=== PATIENT | female | born 1975 | race Caucasian/White ===

== ENCOUNTER 2016-07-23 19:36 | Inpatient (IN) | payer OTHER ==
[~2016-07-23 19:36] MED LIST: AMBIEN CR6.25 MG PO; CALCITRIOL0.25 MC1 PO; CALCIUM 500 +1 EAC9 PO; FLEXERIL10 MG; IBUPROFEN800 M1 PO; LEVOTHYROXINE25 MC3; NORCO 5-325 TA1 EACH PO; NORCO 5/325 TAB1 TAB PO; PRENATAL TABLE1 EAC3 PO; PRENATAL VITAM1 EAC5; SYNTHROID25 MC1 PO; TYLENOL EXTRA500 M1 PO; TYLENOL WITH C1 EACH PO; WELLBUTRIN SR150 MG
[2016-07-23 20:56] LABS: BASO % 0.1 % (0-2); EOS % 0.5 % (0-7); EOSINOPHIL ABSOLUTE COUNT 0.1 tho/cmm (0.0-0.7); HCT-HEMATOCRIT 34.8 % (34.0-49.0); HGB-HEMOGLOBIN 11.6 gm/dl (12.0-15.5); IMMATURE GRANULOCYTES ABSOLUTE 0.07 tho/cmm (0-0.03); IMMATURE GRANULOCYTES PERCENT 0.7 % (0-0.3); LYMPH % 15.4 % (20-45); LYMPH ABSOLUTE COUNT 1.5 tho/cmm (0.8-4.5); MCHC MEAN CORPUSCULAR HGB CONC 33.3 % (32.0-36.0); MCV (MEAN CELL VOLUME) 83.9 fl (82.0-96.0); MEAN PLATELET VOLUME 12.2 cmc (9.4-12.4); MONO % 5.9 % (0-12); MONOCYTE ABSOLUTE COUNT 0.6 tho/cmm (0.0-1.2); NEUTROPHIL ABSOLUTE COUNT 7.7 tho/cmm (1.6-8.0); NEUTROPHIL-AUTOMATED 7.7 tho/cmm (1.6-8.0); NEUTROPHILS % 77.4 % (40-80); PLATELET COUNT 165 tho/cmm (150-450); RED BLOOD COUNT 4.15 mil/cmm (4.00-5.20); RED CELL DISTRIBUTION WIDTH 14.8 % (12.4-16.4)
[2016-07-23] MEDS ORDERED: PRENA1 CHEW TA1.4 M1 PO (21:38)
[2016-07-23] MEDS ORDERED: SYNTHROID175 MC1 PO (21:40)
[2016-07-23] MEDS ORDERED: PROTONIX40 M2 PO (21:43)
[2016-07-23] MEDS ORDERED: 12 HOUR NASAL R15 ML (21:43)
[2016-07-24 12:05] LABS: CORD BLOOD PH ARTERIAL 7.13 Units (7.18-7.38)
[2016-07-24 12:08] LABS: CORD BLOOD PH ARTERIAL 7.25 Units (7.18-7.38)
[2016-07-25 06:44] LABS: BASO % 0.1 % (0-2); EOS % 0.6 % (0-7); EOSINOPHIL ABSOLUTE COUNT 0.1 tho/cmm (0.0-0.7); HCT-HEMATOCRIT 31.5 % (34.0-49.0); HGB-HEMOGLOBIN 10.2 gm/dl (12.0-15.5); IMMATURE GRANULOCYTES ABSOLUTE 0.04 tho/cmm (0-0.03); IMMATURE GRANULOCYTES PERCENT 0.5 % (0-0.3); LYMPH % 20.9 % (20-45); LYMPH ABSOLUTE COUNT 1.8 tho/cmm (0.8-4.5); MCH (MEAN CORPUSCULAR HGB) 27.5 pg (28.0-32.0); MCHC MEAN CORPUSCULAR HGB CONC 32.4 % (32.0-36.0); MCV (MEAN CELL VOLUME) 84.9 fl (82.0-96.0); MEAN PLATELET VOLUME 11.9 cmc (9.4-12.4); MONO % 6.2 % (0-12); MONOCYTE ABSOLUTE COUNT 0.5 tho/cmm (0.0-1.2); NEUTROPHIL ABSOLUTE COUNT 6.1 tho/cmm (1.6-8.0); NEUTROPHIL-AUTOMATED 6.1 tho/cmm (1.6-8.0); NEUTROPHILS % 71.7 % (40-80); PLATELET COUNT 136 tho/cmm (150-450); RED BLOOD COUNT 3.71 mil/cmm (4.00-5.20); RED CELL DISTRIBUTION WIDTH 15.2 % (12.4-16.4); WHITE BLOOD COUNT 8.5 tho/cmm (4.0-10.0)
[2016-07-26] MEDS ORDERED: PERCOCET 5-3251 EACH PO (12:46)
[2016-07-26] MEDS ORDERED: IBUPROFEN800 M1 PO (12:47)
== END 2016-07-26 17:57 | DRG 775 ==
LOC: LDR 19:36 → OBGF 07-24 14:15
PROVIDERS: Anesthesiology; ADMIT Obstetrics & Gynecology
PROC: 10E0XZZ Delivery of Products of Conception, External Approach (ICD-10-PCS; principal; 2016-07-24)
PROC: 10907ZC Drainage of Amniotic Fluid, Therapeutic from Products of Conception, Via Natural or Artificial Opening (ICD-10-PCS; 2016-07-24)
PROC: 0HQ9XZZ Repair Perineum Skin, External Approach (ICD-10-PCS; 2016-07-24)
DX: O32.8XX2 Maternal care for other malpresentation of fetus, fetus 2 (principal); Z37.2 Twins, both liveborn; O70.0 First degree perineal laceration during delivery; O30.043 Twin pregnancy, dichorionic/diamniotic, third trimester; Z3A.38 38 weeks gestation of pregnancy; Z87.891 Personal history of nicotine dependence; O99.824 Streptococcus B carrier state complicating childbirth; O99.284 Endocrine, nutritional and metabolic diseases complicating childbirth; E03.9 Hypothyroidism, unspecified
CPT/HCPCS: J2405; J2540